=== PATIENT | male | born 1935 | race Caucasian/White ===

== ENCOUNTER 2018-06-03 10:18 | Day surgery (SDC) | payer MEDICARE ==
[~2018-06-03 10:18] MED LIST: ACETAMINOPHEN 325 MG TAB PO; PHENYLEPHRINE HCL 10 % OPHTH. SOL 5ML OD
[2018-06-03] MEDS ORDERED: TRIMETHOBENZAMIDE 300 MG CAP PO (10:30)
[2018-06-03] MEDS: CYCLOPENTOLATE 2% OPHTH SOLN 2ML BTL OD (10:53)
[2018-06-03] MEDS: OFLOXACIN 0.3 % (OCUFLOX) OPTH SOL 5ML OD (10:53)
[2018-06-03] MEDS: PHENYLEPHRINE 2.5% OPHTH SOL 2ML OD (10:53)
[2018-06-03] MEDS: LIDOCAINE 3.5 % 1ML OPHTH TOPICAL GEL OU (10:53)
[2018-06-03] MEDS: TROPICAMIDE 1% OPHTH SOLN 2ML OD (10:53)
[2018-06-03 11:04] LABS: BEDSIDE GLUCOSE 148 MG/DL (83-110)
[2018-06-03] MEDS ORDERED: MIDAZOLAM INJ 2 MG/2 ML VIAL (J2250) As Ordered (12:31)
[2018-06-03] MEDS ORDERED: fentaNYL 100 MCG/2 ML INJECTION (J3010) As Ordered (12:31)
[2018-06-03] MEDS: POVIDONE-IODINE 5% OPHTH PREP SOL 30ML As Ordered (12:36)
[2018-06-03] MEDS: LIDOCAINE 1% SDV 5 ML VIAL As Ordered (12:36)
[2018-06-03] MEDS: HEALON DUET (HEALON 10MG/ML 0.55ML & HEALON ENDOCOAT 30MG/ML 0.85ML) As Ordered (12:36)
[2018-06-03] MEDS: MOXIFLOXACIN IN BSS 0.25MG/0.25ML INTRACAMERAL INJ (OR EYE ONLY)(J2280) As Ordered (12:36)
[2018-06-03] MEDS: TRIAMCINOLONE PRES FR 40 MG/ML 1ML(TRIESENCE)(OR EYE ONLY)(J3300 PER 1MG) As Ordered (12:36)
[2018-06-03] MEDS: BSS with VANC/TOB/EPI for EYE CASES IR (12:37)
[2018-06-03] MEDS: AcetaZOLAMIDE 500 MG ER CAP PO (13:30)
== END 2018-06-03 13:30 | disposition home or self-care (01) ==
LOC: M SDC 10:18
DX: H25.9 Unspecified age-related cataract (principal); I10 Essential (primary) hypertension; E11.9 Type 2 diabetes mellitus without complications; Z79.82 Long term (current) use of aspirin; Z79.899 Other long term (current) drug therapy; Z79.84 Long term (current) use of oral hypoglycemic drugs
CPT/HCPCS: 66984

== ENCOUNTER 2022-03-05 17:04 | Inpatient (IN) | payer MEDICARE ==
[2022-03-05] VITALS (7 sets, daily range): BP systolic 69–91; BP diastolic 42–56
[~2022-03-05] VITALS: Ht 177.8 cm; Wt 88.6 kg
[~2022-03-05 17:04] MED LIST changes: -ACETAMINOPHEN 325 MG TAB PO; +AMLO1TAB25 PO; +ASPI81TA86 PO; +FISH7.5C PO; +GLYB2.5T7 PO; +JARD1TAB PO; +LISI20TA33 PO; +METF500T13 PO; +MULTTAB50 PO; -PHENYLEPHRINE HCL 10 % OPHTH. SOL 5ML OD; +PIPERACILLIN/TAZOBACTAM SOD 4.5 GM in D5W MINI-BAG PLUS 50 ML IV ONE; +PRAV40TA2 PO
[2022-03-05] MEDS ORDERED: cefTRIAXone SOD 2 GM in D5W MINI-BAG PLUS 50 ML IV ONE (17:20)
[2022-03-05] MEDS ORDERED: NS 2,480 ML in IV 1 EA IV ONE (17:20)
[2022-03-05 17:51] LABS: BASO % 0.1 % (0.0-1.0); HEMATOCRIT 48.2 % (42.0-52.0); HEMOGLOBIN 15.7 g/dl (13.5-17.5); LYMPH # 0.6 10^3/uL (1.5-5.0); MEAN CORPUSCULAR HEMOGLOBIN 29.8 pg (27.0-33.0); MEAN CORPUSCULAR HGB CONC 32.6 g/dl (32.0-36.5); MEAN CORPUSCULAR VOLUME 91.5 fl (80.0-96.0); MONO % 5.2 % (2.0-8.0); NEUTROPHILS # 17.9 10^3/uL (1.5-8.5); NEUTROPHILS % 90.9 % (36.0-66.0); PLATELET COUNT, AUTOMATED 196 10^3/uL (150-450); RED BLOOD COUNT 5.27 10^6/uL (4.30-6.10); WHITE BLOOD COUNT 19.7 10^3/uL (4.0-10.0)
[2022-03-05 17:53] LABS: INR 1.11; PROTHROMBIN TIME 14.7 SECONDS (12.7-14.5)
[2022-03-05 17:54] LABS: PARTIAL THROMBOPLASTIN TIME 24.7 SECONDS (25.9-37.0)
[2022-03-05 18:06] LABS: CK-MB VALUE MASS 4.9 NG/ML (<3.6); MB/CK RELATIVE INDEX 1.14 (< OR =4)
[2022-03-05 18:07] LABS: ACETONE/KETONE 22.36 MG/DL (<2.81); ALBUMIN 2.8 GM/DL (3.2-5.2); BILIRUBIN,DIRECT 0.3 MG/DL (0.0-0.2); BILIRUBIN,TOTAL 1.2 MG/DL (0.2-1.0); C REACTIVE PROTEIN QUANTITATIV 7.11 MG/DL (0.00-0.30); CALCIUM LEVEL 9.4 MG/DL (8.8-10.2); CREATININE FOR GFR 3.92 MG/DL (0.70-1.30); GLOMERULAR FILTRATION RATE 15.6 (>35); POTASSIUM SERUM 5.1 MEQ/L (3.5-5.1); TOTAL PROTEIN 6.5 GM/DL (6.4-8.2)
[2022-03-05] MEDS ORDERED: INSULIN IV RATE CHANGE DOCUMENTATION ML/HR XX SCH (18:15)
[2022-03-05 18:19] LABS: VENOUS BASE EXCESS -6.3 (-2.0-2.0); VENOUS HCO3 18.6 MEQ/L (23.0-27.0); VENOUS O2 SATURATION 93.9 % (60.0-80.0); VENOUS PARTIAL PRESSURE CO2 35.4 mmHg (38.0-50.0); VENOUS PARTIAL PRESSURE O2 74.5 mmHg (30.0-50.0); VENOUS PH 7.339 UNITS (7.330-7.430); VENOUS STANDARD HCO3 19.3 MEQ/L; VENOUS TOTAL CO2 19.7 MEQ/L (24.0-28.0)
[2022-03-05] MEDS ORDERED: fentaNYL 100 MCG/2 ML INJECTION IV ONE (18:40)
[2022-03-05] MEDS: INSULIN REGULAR IN 0.9 % NACL 100 UNIT in IV 1 EA IV SCH ×4 (18:52→19:52)
[2022-03-05 19:39] LABS: APPEARANCE, URINE HAZY (CLEAR); BACTERIA, URINE AUTO 1+ (NEGATIVE); BILIRUBIN, URINE AUTO NEGATIVE (NEGATIVE); BLOOD, URINE BLOOD 2+ (NEGATIVE); COLOR, URINE YELLOW (YELLOW); GLUCOSE, URINE (UA) AUTO 3+ mg/dL (NEGATIVE); KETONE, URINE AUTO NEGATIVE (NEGATIVE); LEUKOCYTE ESTERASE, URINE AUTO TRACE (NEGATIVE); MUCUS, URINE SMALL (NEGATIVE); NITRITE, URINE AUTO NEGATIVE (NEGATIVE); PROTEIN, URINE AUTO NEGATIVE (NEGATIVE); RBC, URINE AUTO 22 /HPF (0-3); SPECIFIC GRAVITY URINE AUTO 1.021 (1.002-1.035); SQUAMOUS EPITHELIAL CELL UR AU 0 /HPF (0-6); UROBILINOGEN, URINE AUTO 0.2 mg/dL (0.0-2.0); WBC, URINE AUTO 19 /HPF (0-3)
[2022-03-05] MEDS ORDERED: KCL 10MEQ/100ML SWI (KRUN) 10 MEQ in IV 1 EA IV ONE (20:40)
[2022-03-05] MEDS ORDERED: MOM 30ML SUSPENSION UDC PO PRN (20:40)
[2022-03-05] MEDS ORDERED: NS 1,000 ML IV SCH (20:40)
[2022-03-05] MEDS ORDERED: INSULIN REGULAR IN 0.9 % NACL 100 UNIT in IV 1 EA IV SCH ×2 (20:40)
[2022-03-05 21:17] LABS: VENOUS BASE EXCESS -8.5 (-2.0-2.0); VENOUS HCO3 16.1 MEQ/L (23.0-27.0); VENOUS PARTIAL PRESSURE CO2 31.3 mmHg (38.0-50.0); VENOUS PARTIAL PRESSURE O2 79.9 mmHg (30.0-50.0); VENOUS STANDARD HCO3 17.7 MEQ/L; VENOUS TOTAL CO2 17.1 MEQ/L (24.0-28.0)
[2022-03-05] MEDS ORDERED: GLIP10TA6 PO (21:20)
[2022-03-05] MEDS ORDERED: HYDR12CA PO (21:20)
[2022-03-05] MEDS ORDERED: C 50TAB PO (21:20)
[2022-03-05] MEDS ORDERED: FISH1000 PO (21:20)
[2022-03-05] MEDS ORDERED: ASPI-161 PO (21:20)
[2022-03-05] MEDS ORDERED: HOME MED LIST COMPLETE! XX SCH (21:20)
[2022-03-05] MEDS ORDERED: JANU100T PO (21:21)
[2022-03-05 21:46] LABS: CREATININE FOR GFR 3.35 MG/DL (0.70-1.30); GLOMERULAR FILTRATION RATE 18.7 (>35); POTASSIUM SERUM 3.3 MEQ/L (3.5-5.1)
[2022-03-05 21:54] LABS: HEMOGLOBIN A1c 11.6 %
[2022-03-05] MEDS: INSULIN IV RATE CHANGE DOCUMENTATION ML/HR XX SCH (23:03)
[2022-03-05 23:17] LABS: VENOUS BASE EXCESS -4.6 (-2.0-2.0); VENOUS HCO3 19.4 MEQ/L (23.0-27.0); VENOUS O2 SATURATION 97.1 % (60.0-80.0); VENOUS PARTIAL PRESSURE CO2 33.1 mmHg (38.0-50.0); VENOUS PARTIAL PRESSURE O2 91.8 mmHg (30.0-50.0); VENOUS PH 7.386 UNITS (7.330-7.430); VENOUS STANDARD HCO3 20.7 MEQ/L; VENOUS TOTAL CO2 20.4 MEQ/L (24.0-28.0)
[2022-03-05] MEDS ORDERED: POTASSIUM CHLORIDE 10MEQ SR TABLET PO ONE (23:30)
[2022-03-05] MEDS: DOCUSATE SODIUM 100MG CAPSULE PO SCH (23:31)
[2022-03-05] MEDS: HEPARIN SOD (PORCINE) 5000UNITS/ML 1ML VIAL/SYRINGE SC SCH (23:32)
[2022-03-06] VITALS (41 sets, daily range): BP systolic 75–148; BP diastolic 43–96
[2022-03-06] MEDS ORDERED: PIPERACILLIN/TAZOBACTAM SOD 4.5 GM in D5W MINI-BAG PLUS 50 ML IV ONE ×2
[2022-03-06 00:04] LABS: CALCIUM LEVEL 8.5 MG/DL (8.8-10.2); CREATININE FOR GFR 3.43 MG/DL (0.70-1.30); GLOMERULAR FILTRATION RATE 18.2 (>35); PHOSPHORUS LEVEL 1.6 MG/DL (2.5-4.9); POTASSIUM SERUM 2.9 MEQ/L (3.5-5.1)
[2022-03-06] MEDS: KCL 20MEQ in NS 1000ML 1,000 ML IV SCH ×2 (01:19→03:59)
[2022-03-06] MEDS ORDERED: NS 1,000 ML IV ONE (01:35)
[2022-03-06 02:30] LABS: CALCIUM LEVEL 9.1 MG/DL (8.8-10.2); CREATININE FOR GFR 3.17 MG/DL (0.70-1.30); GLOMERULAR FILTRATION RATE 19.9 (>35); POTASSIUM SERUM 3.6 MEQ/L (3.5-5.1)
[2022-03-06] MEDS ORDERED: POTASSIUM CHLORIDE 10MEQ SR TABLET PO ONE ×3 (02:45→08:30)
[2022-03-06] MEDS: INSULIN IV RATE CHANGE DOCUMENTATION ML/HR XX SCH ×4 (02:52→07:47)
[2022-03-06] MEDS ORDERED: PREVNAR 13 VACCINE SYRINGE IM SCH (03:45)
[2022-03-06 04:58] LABS: VENOUS BASE EXCESS -6.7 (-2.0-2.0); VENOUS HCO3 18.4 MEQ/L (23.0-27.0); VENOUS O2 SATURATION 96.7 % (60.0-80.0); VENOUS PARTIAL PRESSURE CO2 35.9 mmHg (38.0-50.0); VENOUS PARTIAL PRESSURE O2 91.9 mmHg (30.0-50.0); VENOUS PH 7.328 UNITS (7.330-7.430); VENOUS TOTAL CO2 19.5 MEQ/L (24.0-28.0)
[2022-03-06 05:01] LABS: HEMATOCRIT 38.7 % (42.0-52.0); MEAN CORPUSCULAR HEMOGLOBIN 30.1 pg (27.0-33.0); MEAN CORPUSCULAR HGB CONC 33.9 g/dl (32.0-36.5); PLATELET COUNT, AUTOMATED 141 10^3/uL (150-450); RED BLOOD COUNT 4.35 10^6/uL (4.30-6.10); WHITE BLOOD COUNT 24.5 10^3/uL (4.0-10.0)
[2022-03-06] MEDS: HEPARIN SOD (PORCINE) 5000UNITS/ML 1ML VIAL/SYRINGE SC SCH ×3 (05:14→23:20)
[2022-03-06] MEDS: PIPERACILLIN/TAZOBACTAM SOD 2.25 GM in D5W MINI-BAG PLUS 50 ML IV SCH ×2 (05:14→12:00)
[2022-03-06 05:18] LABS: CALCIUM LEVEL 8.6 MG/DL (8.8-10.2); CREATININE FOR GFR 2.85 MG/DL (0.70-1.30); GLOMERULAR FILTRATION RATE 22.5 (>35); PHOSPHORUS LEVEL 1.6 MG/DL (2.5-4.9); POTASSIUM SERUM 3.6 MEQ/L (3.5-5.1)
[2022-03-06 05:19] LABS: HEMOGLOBIN 13.1 g/dl (13.5-17.5)
[2022-03-06] MEDS ORDERED: KCL 20MEQ IN 0.45NS 1000ML 1,000 ML IV SCH (05:40)
[2022-03-06 06:18] LABS: MAGNESIUM LEVEL 2.4 MG/DL (1.8-2.4)
[2022-03-06 08:44] LABS: VENOUS BASE EXCESS -5.9 (-2.0-2.0); VENOUS HCO3 19.5 MEQ/L (23.0-27.0); VENOUS O2 SATURATION 98.2 % (60.0-80.0); VENOUS PARTIAL PRESSURE CO2 38.2 mmHg (38.0-50.0); VENOUS PARTIAL PRESSURE O2 117.3 mmHg (30.0-50.0); VENOUS PH 7.326 UNITS (7.330-7.430); VENOUS STANDARD HCO3 19.7 MEQ/L; VENOUS TOTAL CO2 20.7 MEQ/L (24.0-28.0)
[2022-03-06] MEDS: DOCUSATE SODIUM 100MG CAPSULE PO SCH ×2 (08:44→20:00)
[2022-03-06] MEDS: D5W 1,000 ML IV SCH ×2 (08:54→18:30)
[2022-03-06] MEDS ORDERED: LEVEMIR (INSULIN DETEMIR) 1 UNITS/0.01ML SC SCH (09:00)
[2022-03-06 09:11] LABS: CREATININE FOR GFR 2.4 MG/DL (0.70-1.30); GLOMERULAR FILTRATION RATE 27.5 (>35); PHOSPHORUS LEVEL 1.6 MG/DL (2.5-4.9); POTASSIUM SERUM 4.3 MEQ/L (3.5-5.1)
[2022-03-06] MEDS ORDERED: POTASSIUM PHOSPHATE INJ 30 MMOL in D5W 500 ML IV ONE (10:00)
[2022-03-06] MEDS ORDERED: GLUCOSE 4GM CHEW TABLET PO PRN (10:20)
[2022-03-06] MEDS ORDERED: GLUCAGON INJ 1MG VIAL SC PRN (10:20)
[2022-03-06] MEDS ORDERED: PIPERACILLIN/TAZOBACTAM SOD 3.375 GM in D5W MINI-BAG PLUS 50 ML IV SCH (12:00)
[2022-03-06] MEDS: HumaLOG INSULIN (NovoLOG) PER UNIT SC SCH ×3 (12:17→20:46)
[2022-03-06 13:08] LABS: VENOUS BASE EXCESS -6.4 (-2.0-2.0); VENOUS HCO3 18.7 MEQ/L (23.0-27.0); VENOUS O2 SATURATION 95.7 % (60.0-80.0); VENOUS PARTIAL PRESSURE CO2 36.2 mmHg (38.0-50.0); VENOUS PARTIAL PRESSURE O2 84.9 mmHg (30.0-50.0); VENOUS PH 7.331 UNITS (7.330-7.430); VENOUS STANDARD HCO3 19.2 MEQ/L; VENOUS TOTAL CO2 19.8 MEQ/L (24.0-28.0)
[2022-03-06 13:38] LABS: CALCIUM LEVEL 8.6 MG/DL (8.8-10.2); CREATININE FOR GFR 1.95 MG/DL (0.70-1.30); GLOMERULAR FILTRATION RATE 34.9 (>35); PHOSPHORUS LEVEL 3.3 MG/DL (2.5-4.9); POTASSIUM SERUM 5.2 MEQ/L (3.5-5.1)
[2022-03-06] MEDS: PRAVASTATIN 20 MG TAB PO SCH (15:10)
[2022-03-06] MEDS: ASCORBIC ACID 500 MG TAB PO SCH (15:10)
[2022-03-06] MEDS: ASPIRIN 81MG ENTERIC TABLET PO SCH (15:10)
[2022-03-06] MEDS: PIPERACILLIN/TAZOBACTAM SOD 3.375 GM in D5W MINI-BAG PLUS 50 ML IV SCH ×2 (17:59→23:20)
[2022-03-06 18:38] LABS: CREATININE FOR GFR 1.79 MG/DL (0.70-1.30); GLOMERULAR FILTRATION RATE 38.5 (>35); MAGNESIUM LEVEL 2.2 MG/DL (1.8-2.4); PHOSPHORUS LEVEL 2.4 MG/DL (2.5-4.9); POTASSIUM SERUM 4.6 MEQ/L (3.5-5.1)
[2022-03-07] VITALS (16 sets, daily range): BP systolic 90–149; BP diastolic 53–96
[2022-03-07 04:30] LABS: HEMATOCRIT 40.9 % (42.0-52.0); HEMOGLOBIN 13.7 g/dl (13.5-17.5); MEAN CORPUSCULAR HEMOGLOBIN 29.9 pg (27.0-33.0); MEAN CORPUSCULAR HGB CONC 33.5 g/dl (32.0-36.5); MEAN CORPUSCULAR VOLUME 89.3 fl (80.0-96.0); PLATELET COUNT, AUTOMATED 133 10^3/uL (150-450); RED BLOOD COUNT 4.58 10^6/uL (4.30-6.10)
[2022-03-07] MEDS: D5W 1,000 ML IV SCH ×3 (04:30→21:12)
[2022-03-07 04:55] LABS: CALCIUM LEVEL 8.4 MG/DL (8.8-10.2); CREATININE FOR GFR 1.63 MG/DL (0.70-1.30); GLOMERULAR FILTRATION RATE 42.9 (>35); POTASSIUM SERUM 4.3 MEQ/L (3.5-5.1)
[2022-03-07] MEDS ORDERED: FUROSEMIDE 40MG/4ML VIAL (J1940) IV ONE (05:05)
[2022-03-07 05:17] LABS: PHOSPHORUS LEVEL 2.3 MG/DL (2.5-4.9)
[2022-03-07] MEDS: HEPARIN SOD (PORCINE) 5000UNITS/ML 1ML VIAL/SYRINGE SC SCH ×3 (05:26→21:41)
[2022-03-07] MEDS: PIPERACILLIN/TAZOBACTAM SOD 3.375 GM in D5W MINI-BAG PLUS 50 ML IV SCH ×3 (05:26→17:30)
[2022-03-07] MEDS: HumaLOG INSULIN (NovoLOG) PER UNIT SC SCH ×4 (08:34→21:00)
[2022-03-07] MEDS: LEVEMIR (INSULIN DETEMIR) 1 UNITS/0.01ML SC SCH (08:34)
[2022-03-07] MEDS: DOCUSATE SODIUM 100MG CAPSULE PO SCH ×2 (09:00→21:42)
[2022-03-07] MEDS: ASPIRIN 81MG ENTERIC TABLET PO SCH (09:42)
[2022-03-07] MEDS: ASCORBIC ACID 500 MG TAB PO SCH (09:42)
[2022-03-07] MEDS: PRAVASTATIN 20 MG TAB PO SCH (09:42)
[2022-03-07] MEDS ORDERED: ONDANSETRON 4MG/2ML VIAL IV PRN (15:20)
[2022-03-07] MEDS: ONDANSETRON 4MG/2ML VIAL IV PRN (15:22)
[2022-03-07] MEDS: ACETAMINOPHEN TAB 650MG DOSE (2X325MG) PO PRN (17:22)
[2022-03-07 18:36] LABS: CREATININE FOR GFR 1.48 MG/DL (0.70-1.30); POTASSIUM SERUM 3.5 MEQ/L (3.5-5.1)
[2022-03-07] MEDS ORDERED: POTASSIUM CHLORIDE 10MEQ SR TABLET PO ONE (20:50)
[2022-03-07] MEDS: TAMSULOSIN 0.4 MG CAP PO SCH (21:42)
[2022-03-08] VITALS: BP 112/58
[2022-03-08] MEDS: PIPERACILLIN/TAZOBACTAM SOD 3.375 GM in D5W MINI-BAG PLUS 50 ML IV SCH ×5 (00:48→23:01)
[2022-03-08 04:00] VITALS: BP 113/56
[2022-03-08 05:30] LABS: HEMATOCRIT 40.2 % (42.0-52.0); HEMOGLOBIN 13.4 g/dl (13.5-17.5); MEAN CORPUSCULAR HEMOGLOBIN 29.6 pg (27.0-33.0); MEAN CORPUSCULAR HGB CONC 33.3 g/dl (32.0-36.5); MEAN CORPUSCULAR VOLUME 88.9 fl (80.0-96.0); PLATELET COUNT, AUTOMATED 119 10^3/uL (150-450); RED BLOOD COUNT 4.52 10^6/uL (4.30-6.10)
[2022-03-08 05:38] LABS: CALCIUM LEVEL 8.7 MG/DL (8.8-10.2); CREATININE FOR GFR 1.37 MG/DL (0.70-1.30); GLOMERULAR FILTRATION RATE 52.4 (>35); POTASSIUM SERUM 4.1 MEQ/L (3.5-5.1)
[2022-03-08] MEDS: HEPARIN SOD (PORCINE) 5000UNITS/ML 1ML VIAL/SYRINGE SC SCH (05:44)
[2022-03-08 08:00] VITALS: BP 113/58
[2022-03-08] MEDS: DOCUSATE SODIUM 100MG CAPSULE PO SCH ×2 (08:58→20:06)
[2022-03-08] MEDS: ASPIRIN 81MG ENTERIC TABLET PO SCH (08:59)
[2022-03-08] MEDS: PRAVASTATIN 20 MG TAB PO SCH (08:59)
[2022-03-08] MEDS: ASCORBIC ACID 500 MG TAB PO SCH (08:59)
[2022-03-08] MEDS ORDERED: LEVEMIR (INSULIN DETEMIR) 1 UNITS/0.01ML SC SCH (09:00)
[2022-03-08] MEDS: HumaLOG INSULIN (NovoLOG) PER UNIT SC SCH ×4 (09:03→20:02)
[2022-03-08] MEDS: LEVEMIR (INSULIN DETEMIR) 1 UNITS/0.01ML SC SCH (09:06)
[2022-03-08] MEDS ORDERED: LEVEMIR (INSULIN DETEMIR) 1 UNITS/0.01ML SC ONE (10:20)
[2022-03-08] MEDS: D5W 1,000 ML IV SCH (10:41)
[2022-03-08 15:50] VITALS: BP 125/63
[2022-03-08] MEDS: RAMELTEON 8 MG TAB (ROZEREM) PO PRN (20:06)
[2022-03-08] MEDS: TAMSULOSIN 0.4 MG CAP PO SCH (20:06)
[2022-03-08 22:00] VITALS: BP 116/64
[2022-03-09] MEDS: PIPERACILLIN/TAZOBACTAM SOD 3.375 GM in D5W MINI-BAG PLUS 50 ML IV SCH ×4 (05:01→23:20)
[2022-03-09 06:00] VITALS: BP 126/67
[2022-03-09 06:22] LABS: HEMATOCRIT 38.5 % (42.0-52.0); HEMOGLOBIN 12.9 g/dl (13.5-17.5); MEAN CORPUSCULAR HEMOGLOBIN 30.2 pg (27.0-33.0); MEAN CORPUSCULAR HGB CONC 33.5 g/dl (32.0-36.5); MEAN CORPUSCULAR VOLUME 90.2 fl (80.0-96.0); PLATELET COUNT, AUTOMATED 120 10^3/uL (150-450); RED BLOOD COUNT 4.27 10^6/uL (4.30-6.10); WHITE BLOOD COUNT 6.7 10^3/uL (4.0-10.0)
[2022-03-09 06:39] LABS: BLOOD UREA NITROGEN 34 MG/DL (7-18); CARBON DIOXIDE LEVEL 27 MEQ/L (21-32); CHLORIDE LEVEL 117 MEQ/L (98-107); CREATININE FOR GFR 1.17 MG/DL (0.70-1.30); GLOMERULAR FILTRATION RATE > 60.0 (>35); GLUCOSE, FASTING 123 MG/DL (70-100); POTASSIUM SERUM 3.7 MEQ/L (3.5-5.1); SODIUM LEVEL 148 MEQ/L (136-145)
[2022-03-09] MEDS: PRAVASTATIN 20 MG TAB PO SCH (08:29)
[2022-03-09] MEDS: ASPIRIN 81MG ENTERIC TABLET PO SCH (08:29)
[2022-03-09] MEDS: ASCORBIC ACID 500 MG TAB PO SCH (08:29)
[2022-03-09] MEDS: DOCUSATE SODIUM 100MG CAPSULE PO SCH ×2 (08:29→21:06)
[2022-03-09] MEDS: HumaLOG INSULIN (NovoLOG) PER UNIT SC SCH ×4 (08:31→21:00)
[2022-03-09] MEDS ORDERED: PREVNAR 13 VACCINE SYRINGE IM ONE (09:00)
[2022-03-09] MEDS ORDERED: LEVEMIR (INSULIN DETEMIR) 1 UNITS/0.01ML SC SCH (09:00)
[2022-03-09 14:00] VITALS: BP 116/67
[2022-03-09] MEDS: ONDANSETRON 4MG/2ML VIAL IV PRN (18:44)
[2022-03-09 19:08] VITALS: BP 113/68
[2022-03-09] MEDS: RAMELTEON 8 MG TAB (ROZEREM) PO PRN (21:06)
[2022-03-09] MEDS: TAMSULOSIN 0.4 MG CAP PO SCH (21:06)
[2022-03-10] MEDS: PIPERACILLIN/TAZOBACTAM SOD 3.375 GM in D5W MINI-BAG PLUS 50 ML IV SCH ×3 (05:19→17:35)
[2022-03-10 05:43] LABS: MEAN CORPUSCULAR HEMOGLOBIN 29.5 pg (27.0-33.0); MEAN CORPUSCULAR HGB CONC 32.5 g/dl (32.0-36.5); MEAN CORPUSCULAR VOLUME 90.9 fl (80.0-96.0); PLATELET COUNT, AUTOMATED 131 10^3/uL (150-450); WHITE BLOOD COUNT 11.2 10^3/uL (4.0-10.0)
[2022-03-10 05:59] LABS: CALCIUM LEVEL 8.7 MG/DL (8.8-10.2); CREATININE FOR GFR 1.25 MG/DL (0.70-1.30); GLOMERULAR FILTRATION RATE 58.3 (>35); POTASSIUM SERUM 4.2 MEQ/L (3.5-5.1)
[2022-03-10 06:00] VITALS: BP 120/66
[2022-03-10] MEDS: HumaLOG INSULIN (NovoLOG) PER UNIT SC SCH ×4 (08:11→21:19)
[2022-03-10] MEDS: LEVEMIR (INSULIN DETEMIR) 1 UNITS/0.01ML SC SCH (08:12)
[2022-03-10] MEDS: ASPIRIN 81MG ENTERIC TABLET PO SCH (08:13)
[2022-03-10] MEDS: ASCORBIC ACID 500 MG TAB PO SCH (08:13)
[2022-03-10] MEDS: PRAVASTATIN 20 MG TAB PO SCH (08:13)
[2022-03-10] MEDS: DOCUSATE SODIUM 100MG CAPSULE PO SCH ×2 (08:13→21:19)
[2022-03-10] MEDS: ACETAMINOPHEN TAB 650MG DOSE (2X325MG) PO PRN (12:21)
[2022-03-10 14:00] VITALS: BP 120/66
[2022-03-10 18:00] VITALS: BP 133/61
[2022-03-10] MEDS: RAMELTEON 8 MG TAB (ROZEREM) PO PRN (21:19)
[2022-03-10] MEDS: TAMSULOSIN 0.4 MG CAP PO SCH (21:19)
[2022-03-10 22:00] VITALS: BP 155/77
[2022-03-11] MEDS: PIPERACILLIN/TAZOBACTAM SOD 3.375 GM in D5W MINI-BAG PLUS 50 ML IV SCH ×5 (00:25→23:51)
[2022-03-11 06:00] VITALS: BP 131/67
[2022-03-11 06:44] LABS: HEMATOCRIT 39.4 % (42.0-52.0); HEMOGLOBIN 13.2 g/dl (13.5-17.5); MEAN CORPUSCULAR HEMOGLOBIN 29.8 pg (27.0-33.0); MEAN CORPUSCULAR HGB CONC 33.5 g/dl (32.0-36.5); MEAN CORPUSCULAR VOLUME 88.9 fl (80.0-96.0); PLATELET COUNT, AUTOMATED 149 10^3/uL (150-450); RED BLOOD COUNT 4.43 10^6/uL (4.30-6.10); WHITE BLOOD COUNT 8.7 10^3/uL (4.0-10.0)
[2022-03-11 07:17] LABS: BLOOD UREA NITROGEN 23 MG/DL (7-18); CALCIUM LEVEL 7.9 MG/DL (8.8-10.2); CARBON DIOXIDE LEVEL 26 MEQ/L (21-32); CHLORIDE LEVEL 109 MEQ/L (98-107); CREATININE FOR GFR 1.15 MG/DL (0.70-1.30); GLOMERULAR FILTRATION RATE > 60.0 (>35); GLUCOSE, FASTING 233 MG/DL (70-100); POTASSIUM SERUM 4.5 MEQ/L (3.5-5.1); SODIUM LEVEL 141 MEQ/L (136-145)
[2022-03-11] MEDS: LEVEMIR (INSULIN DETEMIR) 1 UNITS/0.01ML SC SCH (08:20)
[2022-03-11] MEDS: HumaLOG INSULIN (NovoLOG) PER UNIT SC SCH ×4 (08:21→20:27)
[2022-03-11] MEDS: PRAVASTATIN 20 MG TAB PO SCH (08:21)
[2022-03-11] MEDS: DOCUSATE SODIUM 100MG CAPSULE PO SCH ×2 (08:21→20:27)
[2022-03-11] MEDS: ASCORBIC ACID 500 MG TAB PO SCH (08:21)
[2022-03-11] MEDS: ASPIRIN 81MG ENTERIC TABLET PO SCH (08:21)
[2022-03-11 14:00] VITALS: BP 126/54
[2022-03-11 19:06] VITALS: BP 133/67
[2022-03-11] MEDS: TAMSULOSIN 0.4 MG CAP PO SCH (20:29)
[2022-03-12] MEDS: PIPERACILLIN/TAZOBACTAM SOD 3.375 GM in D5W MINI-BAG PLUS 50 ML IV SCH ×2 (05:13→11:50)
[2022-03-12 06:12] VITALS: BP 127/68
[2022-03-12] MEDS: DOCUSATE SODIUM 100MG CAPSULE PO SCH (07:57)
[2022-03-12] MEDS: ASCORBIC ACID 500 MG TAB PO SCH (08:30)
[2022-03-12] MEDS: HumaLOG INSULIN (NovoLOG) PER UNIT SC SCH ×2 (08:30→11:50)
[2022-03-12] MEDS: ASPIRIN 81MG ENTERIC TABLET PO SCH (08:30)
[2022-03-12] MEDS: PRAVASTATIN 20 MG TAB PO SCH (08:30)
[2022-03-12] MEDS: LEVEMIR (INSULIN DETEMIR) 1 UNITS/0.01ML SC SCH (08:31)
[2022-03-12 09:51] LABS: HEMATOCRIT 39.1 % (42.0-52.0); HEMOGLOBIN 13.2 g/dl (13.5-17.5); MEAN CORPUSCULAR HEMOGLOBIN 30.2 pg (27.0-33.0); MEAN CORPUSCULAR HGB CONC 33.8 g/dl (32.0-36.5); MEAN CORPUSCULAR VOLUME 89.5 fl (80.0-96.0); PLATELET COUNT, AUTOMATED 166 10^3/uL (150-450); RED BLOOD COUNT 4.37 10^6/uL (4.30-6.10); WHITE BLOOD COUNT 8.5 10^3/uL (4.0-10.0)
[2022-03-12 10:11] LABS: BLOOD UREA NITROGEN 18 MG/DL (7-18); CARBON DIOXIDE LEVEL 29 MEQ/L (21-32); CHLORIDE LEVEL 105 MEQ/L (98-107); CREATININE FOR GFR 1.12 MG/DL (0.70-1.30); GLOMERULAR FILTRATION RATE > 60.0 (>35); GLUCOSE, FASTING 275 MG/DL (70-100); POTASSIUM SERUM 4.4 MEQ/L (3.5-5.1); SODIUM LEVEL 139 MEQ/L (136-145)
[2022-03-12] MEDS ORDERED: FLOM0.4C39 PO (11:43)
== END 2022-03-12 13:58 | disposition home health service (06) | DRG 871 ==
LOC: EDBD 17:04 → M ED 17:04 → M ED INP 20:37 → M ICU 22:15 → M MSPAV 03-08 15:34
PROVIDERS: ADMIT Family Medicine; ATTEND Internal Medicine
DX: A41.9 Sepsis, unspecified organism (principal); E11.00 Type 2 diabetes mellitus with hyperosmolarity without nonketotic hyperglycemic-hyperosmolar coma (NKHHC); G93.41 Metabolic encephalopathy; N39.0 Urinary tract infection, site not specified; N17.9 Acute kidney failure, unspecified; E87.0 Hyperosmolality and hypernatremia; I13.0 Hypertensive heart and chronic kidney disease with heart failure and stage 1 through stage 4 chronic kidney disease, or unspecified chronic kidney disease; E78.5 Hyperlipidemia, unspecified; E86.0 Dehydration; R65.20 Severe sepsis without septic shock; E83.39 Other disorders of phosphorus metabolism; E87.6 Hypokalemia; N18.9 Chronic kidney disease, unspecified; E11.22 Type 2 diabetes mellitus with diabetic chronic kidney disease; N13.9 Obstructive and reflux uropathy, unspecified; E11.65 Type 2 diabetes mellitus with hyperglycemia; R33.9 Retention of urine, unspecified; B96.1 Klebsiella pneumoniae [K. pneumoniae] as the cause of diseases classified elsewhere; Z79.82 Long term (current) use of aspirin; Z79.84 Long term (current) use of oral hypoglycemic drugs; Z79.899 Other long term (current) drug therapy

== ENCOUNTER → 2022-03-22 | Outpatient (REF) | payer MEDICARE ==
[~2022-03-22] MED LIST changes: +ASPI-161 PO; +C 50TAB PO; +FISH1000 PO; +FLOM0.4C39 PO; +GLIP10TA6 PO; +HYDR12CA PO; +JANU100T PO; -PIPERACILLIN/TAZOBACTAM SOD 4.5 GM in D5W MINI-BAG PLUS 50 ML IV ONE
== END ==
LOC: M LAB REF 15:44
PROVIDERS: ATTEND Internal Medicine
DX: N18.30 Chronic kidney disease, stage 3 unspecified (principal)

== ENCOUNTER → 2022-06-04 | Outpatient (REF) | payer MEDICARE | LOC: M LAB REF 16:51 | PROVIDERS: ATTEND Internal Medicine | DX: R23.8 Other skin changes (principal); L08.9 Local infection of the skin and subcutaneous tissue, unspecified ==

== ENCOUNTER 2022-06-11 10:03 | Observation (INO) | payer MEDICARE ==
[~2022-06-11] VITALS: Ht 177.8 cm; Wt 82.9 kg
[~2022-06-11 10:03] MED LIST changes: +FISH10005 PO; -FISH7.5C PO
[2022-06-11] MEDS ORDERED: BACTDSTA PO (10:14)
[2022-06-11] MEDS ORDERED: VALS1TAB66 PO (10:14)
[2022-06-11 12:06] LABS: BASO % 0.3 % (0.0-1.0); EOS % 0.1 % (0.0-3.0); HEMATOCRIT 39.9 % (42.0-52.0); HEMOGLOBIN 13.8 g/dl (13.5-17.5); LYMPH # 1.6 10^3/uL (1.5-5.0); LYMPH % 15.3 % (24.0-44.0); MEAN CORPUSCULAR HEMOGLOBIN 30.3 pg (27.0-33.0); MEAN CORPUSCULAR HGB CONC 34.6 g/dl (32.0-36.5); MEAN CORPUSCULAR VOLUME 87.5 fl (80.0-96.0); MONO # 0.8 10^3/uL (0.0-0.8); MONO % 7.7 % (2.0-8.0); NEUTROPHILS # 8.1 10^3/uL (1.5-8.5); NEUTROPHILS % 76.1 % (36.0-66.0); PLATELET COUNT, AUTOMATED 154 10^3/uL (150-450); RED BLOOD COUNT 4.56 10^6/uL (4.30-6.10); WHITE BLOOD COUNT 10.6 10^3/uL (4.0-10.0)
[2022-06-11] MEDS ORDERED: TAMSULOSIN 0.4 MG CAP PO ONE (12:25)
[2022-06-11 12:29] LABS: ERYTHROCYTE SEDIMENTATION RATE 9 mm/hr (0-20)
[2022-06-11 12:35] LABS: ALBUMIN 3.9 GM/DL (3.2-5.2); BILIRUBIN,TOTAL 0.5 MG/DL (0.2-1.0); C REACTIVE PROTEIN QUANTITATIV 0.3 MG/DL (0.00-0.30); CREATININE FOR GFR 2.02 MG/DL (0.70-1.30); GLOMERULAR FILTRATION RATE 33.4 (>35); POTASSIUM SERUM 4.8 MEQ/L (3.5-5.1)
[2022-06-11] MEDS ORDERED: NS 1,000 ML IV ONE (12:45)
[2022-06-11 14:04] LABS: RSV AMPLIFICATION NEGATIVE (NEGATIVE)
[2022-06-11] MEDS ORDERED: AMLO1TAB24 PO (14:20)
[2022-06-11] MEDS ORDERED: PT COMMENT (14:24)
[2022-06-11] MEDS ORDERED: HOME MED LIST COMPLETE! XX SCH (14:25)
[2022-06-11 17:10] VITALS: BP 121/64
[2022-06-11] MEDS ORDERED: GLUCOSE 4GM CHEW TABLET PO PRN (19:15)
[2022-06-11] MEDS ORDERED: DEXTROSE 50% 50 ML SYRINGE IV PRN (19:15)
[2022-06-11] MEDS ORDERED: GLUCAGON INJ 1MG VIAL SC PRN (19:15)
[2022-06-11 20:50] VITALS: BP 104/52
[2022-06-11] MEDS: HEPARIN SOD (PORCINE) 5000UNITS/ML 1ML VIAL/SYRINGE SQ SCH (22:19)
[2022-06-12] MEDS: HEPARIN SOD (PORCINE) 5000UNITS/ML 1ML VIAL/SYRINGE SQ SCH ×2 (05:12→14:00)
[2022-06-12 05:24] VITALS: BP 121/66
[2022-06-12 06:05] LABS: HEMATOCRIT 36.2 % (42.0-52.0); HEMOGLOBIN 12.4 g/dl (13.5-17.5); MEAN CORPUSCULAR HEMOGLOBIN 29.5 pg (27.0-33.0); MEAN CORPUSCULAR HGB CONC 34.3 g/dl (32.0-36.5); MEAN CORPUSCULAR VOLUME 86.2 fl (80.0-96.0); PLATELET COUNT, AUTOMATED 136 10^3/uL (150-450); WHITE BLOOD COUNT 8.3 10^3/uL (4.0-10.0)
[2022-06-12 06:28] LABS: CALCIUM LEVEL 9.1 MG/DL (8.8-10.2); CREATININE FOR GFR 1.55 MG/DL (0.70-1.30); GLOMERULAR FILTRATION RATE 45.4 (>35); POTASSIUM SERUM 4.5 MEQ/L (3.5-5.1)
[2022-06-12] MEDS ORDERED: LR 1,000 ML IV ONE (07:35)
[2022-06-12] MEDS: INSULIN LISPRO (NovoLOG) PER UNIT SC SCH ×2 (08:16→12:00)
[2022-06-12 08:18] VITALS: BP 124/66
[2022-06-12] MEDS ORDERED: amLODIPine 5 MG TAB PO SCH (09:00)
[2022-06-12] MEDS ORDERED: ASPIRIN 81MG ENTERIC TABLET PO SCH (09:00)
[2022-06-12] MEDS ORDERED: SITagliptin 50 MG TAB (JANUVIA) PO SCH (09:00)
[2022-06-12] MEDS ORDERED: PRAVASTATIN 20 MG TAB PO SCH (09:00)
[2022-06-12] MEDS ORDERED: hydroCHLOROthiazide 12.5 MG CAPSULE PO SCH (09:00)
[2022-06-12] MEDS ORDERED: ASCORBIC ACID 500 MG TAB PO SCH (09:00)
[2022-06-12] MEDS ORDERED: VALSARTAN 80 MG TAB (DIOVAN) PO SCH (09:00)
[2022-06-12] MEDS ORDERED: FLOM0.4C39 PO (10:16)
[2022-06-12 10:54] LABS: CALCIUM LEVEL 8.6 MG/DL (8.8-10.2); CREATININE FOR GFR 1.6 MG/DL (0.70-1.30); GLOMERULAR FILTRATION RATE 43.7 (>35); POTASSIUM SERUM 4.5 MEQ/L (3.5-5.1)
[2022-06-12] MEDS ORDERED: INSULIN LISPRO (NovoLOG) PER UNIT SC SCH (21:00)
== END 2022-06-12 16:42 | disposition home or self-care (01) ==
LOC: M ED 10:03 → M ED INP 14:25 → ENRESERV 15:33 → M MSPAV 17:10
PROVIDERS: ADMIT Student in an Organized Health Care Education/Training Program; ATTEND Student in an Organized Health Care Education/Training Program
DX: R33.9 Retention of urine, unspecified (principal); N17.9 Acute kidney failure, unspecified; L98.9 Disorder of the skin and subcutaneous tissue, unspecified; B95.8 Unspecified staphylococcus as the cause of diseases classified elsewhere; E11.9 Type 2 diabetes mellitus without complications; I10 Essential (primary) hypertension; E78.5 Hyperlipidemia, unspecified; Z79.899 Other long term (current) drug therapy; Z79.82 Long term (current) use of aspirin; Z79.84 Long term (current) use of oral hypoglycemic drugs; Z87.440 Personal history of urinary (tract) infections
CPT/HCPCS: 36415; 51702; 80048; 80053; 81001; 83690; 85025; 85027; 85652; 86140; 87070; 87077; 87186; 87205; 87631; 96360; 96361; 96372; 99285; G0378; J1644; J1815

== ENCOUNTER → 2022-06-18 | Outpatient (REF) | payer MEDICARE, OTHER ==
[~2022-06-18] MED LIST changes: +AMLO1TAB24 PO; +BACTDSTA PO; +PT COMMENT; +VALS1TAB66 PO
== END ==
LOC: M SFHCDERM 14:20
PROVIDERS: ATTEND Nurse Practitioner Family
DX: C44.329 Squamous cell carcinoma of skin of other parts of face (principal)

== ENCOUNTER 2022-07-31 18:00 | Emergency (ER) | payer MEDICARE, OTHER ==
[~2022-07-31] VITALS: Ht 177.8 cm; Wt 83.6 kg
[2022-07-31] MEDS ORDERED: LIDOCAINE 2% 5ML JELLY UROJET TOP ONE (19:05)
[2022-07-31 20:13] LABS: HEMATOCRIT 41.5 % (42.0-52.0); HEMOGLOBIN 14.4 g/dl (13.5-17.5); MEAN CORPUSCULAR HEMOGLOBIN 30.2 pg (27.0-33.0); MEAN CORPUSCULAR HGB CONC 34.7 g/dl (32.0-36.5); PLATELET COUNT, AUTOMATED 228 10^3/uL (150-450); RED BLOOD COUNT 4.77 10^6/uL (4.30-6.10); WHITE BLOOD COUNT 14.8 10^3/uL (4.0-10.0)
[2022-07-31 20:39] LABS: CALCIUM LEVEL 9.7 MG/DL (8.8-10.2); CREATININE FOR GFR 1.3 MG/DL (0.70-1.30); GLOMERULAR FILTRATION RATE 55.6 (>35); POTASSIUM SERUM 4.1 MEQ/L (3.5-5.1)
[2022-07-31 21:00] VITALS: BP 148/70
== END 2022-07-31 21:22 | disposition home or self-care (01) ==
LOC: M ED 18:00
DX: R33.9 Retention of urine, unspecified (principal); E11.65 Type 2 diabetes mellitus with hyperglycemia; I10 Essential (primary) hypertension; Z79.82 Long term (current) use of aspirin; Z79.84 Long term (current) use of oral hypoglycemic drugs; Z79.899 Other long term (current) drug therapy

== ENCOUNTER 2024-04-16 11:37 | Inpatient (IN) | payer MEDICARE, OTHER ==
[~2024-04-16] VITALS: Ht 172.7 cm; Wt 85.1 kg
[~2024-04-16 11:37] MED LIST changes: -ASPI-161 PO; +ASPI-615 PO
[2024-04-16] MEDS ORDERED: FINA5TAB2 PO (12:01)
[2024-04-16] MEDS ORDERED: ISOVUE-370 76% 100ML VIAL As Ordered ONE (12:59)
[2024-04-16 13:07] LABS: BASO % 0.1 % (0.0-1.0); EOS % 0.1 % (0.0-3.0); HEMATOCRIT 38.3 % (42.0-52.0); HEMOGLOBIN 13.2 g/dl (13.5-17.5); LYMPH # 1.4 10^3/uL (1.5-5.0); LYMPH % 18.6 % (24.0-44.0); MEAN CORPUSCULAR HEMOGLOBIN 29.9 pg (27.0-33.0); MEAN CORPUSCULAR HGB CONC 34.5 g/dl (32.0-36.5); MEAN CORPUSCULAR VOLUME 86.7 fl (80.0-96.0); MONO # 0.8 10^3/uL (0.0-0.8); MONO % 10.5 % (2.0-8.0); NEUTROPHILS # 5.2 10^3/uL (1.5-8.5); NEUTROPHILS % 70.2 % (36.0-66.0); PLATELET COUNT, AUTOMATED 126 10^3/uL (150-450); RED BLOOD COUNT 4.42 10^6/uL (4.30-6.10); WHITE BLOOD COUNT 7.5 10^3/uL (4.0-10.0)
[2024-04-16 13:12] LABS: ALBUMIN 3.4 G/DL (3.2-5.2); ALKALINE PHOSPHATASE 215 U/L (46-116); ALT/SGPT 247 U/L (7.0-40); AST/SGOT 117 U/L (<34); BILIRUBIN,DIRECT 0.6 MG/DL (<0.4); BILIRUBIN,TOTAL 1.4 MG/DL (0.3-1.2); BLOOD UREA NITROGEN 24 MG/DL (9-23); CALCIUM LEVEL 9.4 MG/DL (8.3-10.6); CARBON DIOXIDE LEVEL 25 MMOL/L (20-31); CHLORIDE LEVEL 103 MMOL/L (98-107); GLOMERULAR FILTRATION RATE > 60.0 (>35); GLUCOSE, FASTING 183 MG/DL (74-106); SODIUM LEVEL 136 MMOL/L (136-145); TOTAL PROTEIN 6.3 G/DL (5.7-8.2)
[2024-04-16 13:14] LABS: FREE T4 1.34 NG/DL (0.89-1.76); THYROID STIMULATING HORMONE 0.541 uIU/ML (0.55-4.78)
[2024-04-16 13:25] LABS: INR 1.05; PARTIAL THROMBOPLASTIN TIME 30.1 SECONDS (24.8-34.2); PROTHROMBIN TIME 13.4 SECONDS (12.5-14.5)
[2024-04-16 15:04] LABS: APPEARANCE, URINE HAZY (CLEAR); BACTERIA, URINE AUTO 1+ (NEGATIVE); BILIRUBIN, URINE AUTO NEGATIVE (NEGATIVE); BLOOD, URINE BLOOD 1+ (NEGATIVE); COLOR, URINE YELLOW (YELLOW); GLUCOSE, URINE (UA) AUTO NEGATIVE (NEGATIVE); KETONE, URINE AUTO NEGATIVE (NEGATIVE); LEUKOCYTE ESTERASE, URINE AUTO TRACE (NEGATIVE); MUCUS, URINE SMALL (NEGATIVE); NITRITE, URINE AUTO NEGATIVE (NEGATIVE); PROTEIN, URINE AUTO NEGATIVE (NEGATIVE); RBC, URINE AUTO 2 /HPF (0-3); SPECIFIC GRAVITY URINE AUTO 1.041 (1.002-1.035); SQUAMOUS EPITHELIAL CELL UR AU 1 /HPF (0-6); UROBILINOGEN, URINE AUTO 0.2 mg/dL (0.0-2.0); WBC, URINE AUTO 3 /HPF (0-3)
[2024-04-16 15:13] LABS: HEPATITIS B SURFACE ANTIGEN NEGATIVE (NEGATIVE)
[2024-04-16 15:32] LABS: HEPATITIS C VIRUS ABY INDEX 0.03 INDEX (<0.8)
[2024-04-16 15:33] LABS: HEPATITIS B CORE ANTIBODY IGM NEGATIVE (NEGATIVE)
[2024-04-16] MEDS ORDERED: GLUCOSE 4 GM CHEW PO PRN (20:35)
[2024-04-16] MEDS ORDERED: GLUCAGON INJ 1MG VIAL SC PRN (20:35)
[2024-04-16] MEDS ORDERED: DEXTROSE 50% 50ML SYRINGE IV PRN (20:35)
[2024-04-16] MEDS ORDERED: MED REC IN PROGRESS XX SCH (20:45)
[2024-04-16] MEDS: CLOPIDOGREL 75 MG TAB PO ONE (20:47)
[2024-04-16 21:05] LABS: CPK CREATINE PHOSPHOKINASE 59 U/L (46-171)
[2024-04-16] MEDS ORDERED: PIOG1TAB36 PO (22:05)
[2024-04-16] MEDS ORDERED: HOME MED LIST COMPLETE! XX SCH (22:05)
[2024-04-16] MEDS ORDERED: TAMS1CAP17 PO (22:05)
[2024-04-16 22:59] LABS: HEMOGLOBIN A1c 6.9 % (4.0-6.0)
[2024-04-16 23:12] VITALS: BP 160/67; TEMP 97.3; O2SAT 97
[2024-04-16] MEDS: ASPIRIN 81MG CHEW TABLET PO ONE (23:20)
[2024-04-16] MEDS: INSULIN LISPRO (NovoLOG) PER UNIT SC SCH (23:20)
[2024-04-16] MEDS: ATORVASTATIN 20 MG TAB PO ONE (23:20)
[2024-04-17] VITALS (7 sets, daily range): BP systolic 118–160; BP diastolic 53–73; TEMP 97.2–98.7; O2SAT 94–99
[2024-04-17 07:03] LABS: CHOLESTEROL RISK RATIO 2.98 (<5); HDL CHOLESTEROL 32.8 MG/DL (>40); NON-HDL-C 65.2 MG/DL
[2024-04-17 07:07] LABS: BILIRUBIN,DIRECT 0.6 MG/DL (<0.4); BILIRUBIN,TOTAL 1.2 MG/DL (0.3-1.2); TOTAL PROTEIN 5.7 G/DL (5.7-8.2)
[2024-04-17] MEDS: CLOPIDOGREL 75 MG TAB PO SCH (08:16)
[2024-04-17] MEDS: ATORVASTATIN 20 MG TAB PO SCH (08:16)
[2024-04-17] MEDS: ASPIRIN 81MG ENTERIC TABLET PO SCH (08:16)
[2024-04-17] MEDS: ENOXAPARIN 40MG/0.4ML SYRINGE (J1650 PER 10MG) SC SCH (08:16)
[2024-04-17] MEDS ORDERED: D5W/0.9% SODIUM CHLORIDE 1,000 ML IV SCH (13:05)
[2024-04-17] MEDS: TAMSULOSIN 0.4 MG CAP PO SCH (17:30)
[2024-04-17] MEDS: FINASTERIDE 5MG TAB PO SCH (17:30)
[2024-04-17] MEDS: INSULIN LISPRO (NovoLOG) PER UNIT SC SCH ×2 (17:31→21:00)
[2024-04-18 03:39] VITALS: BP 142/65; TEMP 97.2; O2SAT 96
[2024-04-18 06:25] LABS: BASO % 0.3 % (0.0-1.0); EOS # 0.1 10^3/uL (0.0-0.5); HEMATOCRIT 35.7 % (42.0-52.0); HEMOGLOBIN 12.2 g/dl (13.5-17.5); LYMPH # 2.2 10^3/uL (1.5-5.0); LYMPH % 35.5 % (24.0-44.0); MEAN CORPUSCULAR HEMOGLOBIN 29.5 pg (27.0-33.0); MEAN CORPUSCULAR HGB CONC 34.2 g/dl (32.0-36.5); MEAN CORPUSCULAR VOLUME 86.2 fl (80.0-96.0); MONO # 0.8 10^3/uL (0.0-0.8); MONO % 13.1 % (2.0-8.0); NEUTROPHILS # 3.1 10^3/uL (1.5-8.5); NEUTROPHILS % 49.9 % (36.0-66.0); PLATELET COUNT, AUTOMATED 141 10^3/uL (150-450); RED BLOOD COUNT 4.14 10^6/uL (4.30-6.10); WHITE BLOOD COUNT 6.3 10^3/uL (4.0-10.0)
[2024-04-18 06:51] LABS: ALBUMIN 2.9 G/DL (3.2-5.2); ALKALINE PHOSPHATASE 174 U/L (46-116); ALT/SGPT 121 U/L (7.0-40); AST/SGOT 42 U/L (<34); BILIRUBIN,TOTAL 1.1 MG/DL (0.3-1.2); BLOOD UREA NITROGEN 25 MG/DL (9-23); CALCIUM LEVEL 9.1 MG/DL (8.3-10.6); CARBON DIOXIDE LEVEL 26 MMOL/L (20-31); CHLORIDE LEVEL 104 MMOL/L (98-107); CREATININE FOR GFR 0.95 MG/DL (0.70-1.30); GLOMERULAR FILTRATION RATE > 60.0 (>35); GLUCOSE, FASTING 137 MG/DL (74-106); MAGNESIUM LEVEL 1.6 MG/DL (1.8-2.4); POTASSIUM SERUM 3.9 MMOL/L (3.5-5.1); SODIUM LEVEL 138 MMOL/L (136-145); TOTAL PROTEIN 5.5 G/DL (5.7-8.2)
[2024-04-18 08:16] VITALS: BP 144/64; TEMP 97; O2SAT 97
[2024-04-18 12:00] VITALS: BP 166/74; TEMP 97; O2SAT 97
[2024-04-18] MEDS: MAG SULF 1GM/100ML (MAG RUN) 1 GM in IV 1 EA IV SCH (15:23)
[2024-04-18 16:00] VITALS: BP 162/72; TEMP 97.4; O2SAT 96
[2024-04-18 19:35] VITALS: BP 153/69; TEMP 97; O2SAT 98
[2024-04-18] MEDS: LEVEMIR (INSULIN DETEMIR) 1 UNITS/0.01ML SC SCH (20:22)
[2024-04-19 04:00] VITALS: BP 124/63; TEMP 96.9; O2SAT 96
[2024-04-19 06:29] LABS: HEMATOCRIT 35.7 % (42.0-52.0); HEMOGLOBIN 12.4 g/dl (13.5-17.5); MEAN CORPUSCULAR HGB CONC 34.7 g/dl (32.0-36.5); MEAN CORPUSCULAR VOLUME 86.4 fl (80.0-96.0); PLATELET COUNT, AUTOMATED 149 10^3/uL (150-450); RED BLOOD COUNT 4.13 10^6/uL (4.30-6.10); WHITE BLOOD COUNT 6.2 10^3/uL (4.0-10.0)
[2024-04-19 06:54] LABS: BLOOD UREA NITROGEN 22 MG/DL (9-23); CARBON DIOXIDE LEVEL 27 MMOL/L (20-31); CHLORIDE LEVEL 105 MMOL/L (98-107); CREATININE FOR GFR 0.92 MG/DL (0.70-1.30); GLOMERULAR FILTRATION RATE > 60.0 (>35); GLUCOSE, FASTING 115 MG/DL (74-106); MAGNESIUM LEVEL 1.8 MG/DL (1.8-2.4); POTASSIUM SERUM 3.9 MMOL/L (3.5-5.1); SODIUM LEVEL 138 MMOL/L (136-145)
[2024-04-19 08:00] VITALS: BP 156/70; TEMP 96.9; O2SAT 97
[2024-04-19 12:10] VITALS: BP 144/64; TEMP 96.8; O2SAT 100
[2024-04-19] MEDS: LEVEMIR (INSULIN DETEMIR) 1 UNITS/0.01ML SC SCH (13:01)
[2024-04-19] MEDS ORDERED: propofoL 200 MG/20 ML VIAL As Ordered ONE (16:44)
[2024-04-19] MEDS ORDERED: LIDOCAINE 2% 100MG/5ML SDV (FOR ANES.) As Ordered ONE (16:44)
[2024-04-19] MEDS: CETACAINE SPRAY 5GM As Ordered ONE (17:20)
[2024-04-19] MEDS ORDERED: ePHEDrine SULFATE 25 MG/5 ML(5MG/ML) SYRINGE As Ordered ONE (17:28)
[2024-04-19] MEDS ORDERED: ONDANSETRON 4MG 2ML VIAL IV PRN (17:40)
[2024-04-19] MEDS: LR 1,000 ML IV SCH (17:40)
[2024-04-19 18:17] VITALS: BP 155/67; TEMP 96.8; O2SAT 98
[2024-04-19 18:47] VITALS: BP 133/65; TEMP 96.7; O2SAT 98
[2024-04-19 23:43] VITALS: BP 144/71; TEMP 97; O2SAT 98
[2024-04-20 06:57] LABS: BASO % 0.5 % (0.0-1.0); EOS # 0.1 10^3/uL (0.0-0.5); EOS % 0.9 % (0.0-3.0); HEMATOCRIT 36.2 % (42.0-52.0); HEMOGLOBIN 12.2 g/dl (13.5-17.5); LYMPH # 2.1 10^3/uL (1.5-5.0); LYMPH % 32.2 % (24.0-44.0); MEAN CORPUSCULAR HEMOGLOBIN 29.3 pg (27.0-33.0); MEAN CORPUSCULAR HGB CONC 33.7 g/dl (32.0-36.5); MONO # 0.7 10^3/uL (0.0-0.8); MONO % 11.3 % (2.0-8.0); NEUTROPHILS # 3.5 10^3/uL (1.5-8.5); NEUTROPHILS % 54.8 % (36.0-66.0); PLATELET COUNT, AUTOMATED 156 10^3/uL (150-450); RED BLOOD COUNT 4.16 10^6/uL (4.30-6.10); WHITE BLOOD COUNT 6.5 10^3/uL (4.0-10.0)
[2024-04-20 07:21] LABS: BLOOD UREA NITROGEN 18 MG/DL (9-23); CALCIUM LEVEL 9.1 MG/DL (8.3-10.6); CARBON DIOXIDE LEVEL 28 MMOL/L (20-31); CHLORIDE LEVEL 102 MMOL/L (98-107); CREATININE FOR GFR 0.85 MG/DL (0.70-1.30); GLOMERULAR FILTRATION RATE > 60.0 (>35); GLUCOSE, FASTING 129 MG/DL (74-106); MAGNESIUM LEVEL 1.7 MG/DL (1.8-2.4); POTASSIUM SERUM 3.9 MMOL/L (3.5-5.1); SODIUM LEVEL 136 MMOL/L (136-145)
[2024-04-20 07:37] VITALS: BP 153/74; TEMP 97; O2SAT 96
[2024-04-20] MEDS ORDERED: ATOR1TAB21 PO (08:45)
[2024-04-20] MEDS ORDERED: CLOP75TA2 PO (08:45)
[2024-04-20] MEDS: MAGNESIUM OXIDE 400MG TAB (MAG-OX) PO ONE (09:49)
[2024-04-20 11:32] VITALS: TEMP 97.9; O2SAT 97
[2024-04-20 11:46] VITALS: BP 154/82
== END 2024-04-20 12:43 | disposition home health service (06) | DRG 66 ==
LOC: M ED 11:37 → M PCU 20:03
PROVIDERS: ADMIT Internal Medicine; ATTEND General Practice
PROC: B246ZZZ Ultrasonography of Right and Left Heart (ICD-10-PCS; principal; 2024-04-17)
PROC: B246ZZ4 Ultrasonography of Right and Left Heart, Transesophageal (ICD-10-PCS; 2024-04-19)
DX: I63.431 Cerebral infarction due to embolism of right posterior cerebral artery (principal); I10 Essential (primary) hypertension; E11.9 Type 2 diabetes mellitus without complications; E78.5 Hyperlipidemia, unspecified; N40.0 Benign prostatic hyperplasia without lower urinary tract symptoms; R29.810 Facial weakness; K80.20 Calculus of gallbladder without cholecystitis without obstruction; Z79.82 Long term (current) use of aspirin; Z79.84 Long term (current) use of oral hypoglycemic drugs; Z79.899 Other long term (current) drug therapy; R74.01 Elevation of levels of liver transaminase levels; R47.01 Aphasia; R41.82 Altered mental status, unspecified; E80.6 Other disorders of bilirubin metabolism; E83.42 Hypomagnesemia